=== PATIENT | male | born 1990 | race African-American/Black ===

== ENCOUNTER 2018-05-20 19:16 | Emergency (ER) | payer SELFPAY ==
[~2018-05-20] VITALS: Ht 175.3 cm; Wt 86.2 kg
[2018-05-20 19:16] VITALS: BP 140/78
[2018-05-20] MEDS ORDERED: IBUPROFEN600 MG ORAL (19:30)
[2018-05-20] MEDS ORDERED: Ketorolac 30mg Inj IM ONE (19:30)
[2018-05-20] MEDS ORDERED: LIDOCAINE700 M1 TP (19:30)
[2018-05-20] MEDS ORDERED: Methocarbamol 500mg tab ORAL ONE (19:30)
[2018-05-20] MEDS ORDERED: ROBAXIN500 MG PO (19:30)
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
[2018-05-20 20:27] VITALS: BP 140/78
--- NOTE | 2018-05-21 11:33 | Diagnostic Imaging Report ---
Indication: left shoulder pain Findings: 3 views of the left shoulder were obtained. Alignment of the left shoulder is normal. No acute fracture is identified. Soft tissues are unremarkable. Impression: No acute injury
--- NOTE | 2018-05-21 11:35 | Diagnostic Imaging Report ---
Indication: Back pain Comparison: None Findings: 3 views of the lumbar spine were obtained. No acute fracture or malalignment is identified. Vertebral body heights and disk spaces are well maintained. Posterior elements are unremarkable. Impression: No acute findings.
--- NOTE | 2018-05-21 11:35 | Diagnostic Imaging Report ---
Indication: Right shoulder pain Findings: 3 views of the right shoulder were obtained. No acute fractures, malalignment, erosions or periostitis are identified. Soft tissues are unremarkable. Impression: Negative for acute injury
== END 2018-05-20 21:27 | disposition home or self-care (01) ==
LOC: EDBD 19:16 → EMR 19:30
DX: S40.012A Contusion of left shoulder, initial encounter (principal); M54.5 Low back pain; V43.62XA Car passenger injured in collision with other type car in traffic accident, initial encounter; Y92.488 Other paved roadways as the place of occurrence of the external cause
CPT/HCPCS: 72020; 96372; 99284